=== PATIENT | female | born 1985 | race Hispanic/Latino ===

== ENCOUNTER 2022-01-29 14:12 | Inpatient (IN) | payer OTHER ==
[~2022-01-29] VITALS: Ht 154.9 cm; Wt 100.7 kg
[2022-02-12] MEDS ORDERED: LACTATED RINGERS 1000ML 1,000 ML IV PRN (15:00)
[2022-02-12 15:27] LABS: HEMATOCRIT 34.7 % (36-48); MEAN CORPUSCULAR HEMOGLOBIN 28.8 pg (27.0-33.0); MEAN CORPUSCULAR HGB CONC 33.1 g/dL (32.0-36.0); MEAN CORPUSCULAR VOLUME 86.8 fL (79-99); PLATELET COUNT (AUTO) 246 K/uL (130-400); RED CELL DISTRIBUTION WIDTH 18.7 % (11.0-15.5); WHITE BLOOD COUNT (AUTO) 10.2 K/uL (4.8-10.8)
[2022-02-12 15:30] LABS: APPEARANCE,URINE CLEAR (CLEAR); BILIRUBIN,URINE NEGATIVE (NEGATIVE); COLOR,URINE YELLOW (YELLOW); GLUCOSE, URINE (UA) NEGATIVE (NEGATIVE); KETONES,URINE NEGATIVE (NEGATIVE); LEUKOCYTE ESTERASE ,URINE NEGATIVE (NEGATIVE); NITRATE,URINE NEGATIVE (NEGATIVE); OCCULT BLOOD,URINE NEGATIVE (NEGATIVE); PH,URINE 7.5 (5.0-8.0); PROTEIN,URINE NEGATIVE (NEGATIVE); UROBILINOGEN,URINE 0.2 mg/dL (0.2-1.0)
[2022-02-12 15:38] LABS: CREATININE 0.4 mg/dL (0.5-1.5); POTASSIUM 3.9 mmol/L (3.5-5.1)
[2022-02-12 15:40] LABS: INR 0.93 (0.85-1.15); PROTHROMBIN TIME 9.8 SEC (9.6-11.6)
[2022-02-12 15:41] LABS: PARTIAL THROMBOPLASTIN TIME 24.8 SEC (26.3-35.5)
[2022-02-12 15:43] LABS: ALBUMIN 2.7 g/dL (3.5-5.0); BILIRUBIN,TOTAL 0.3 mg/dL (0.2-1.0); TOTAL PROTEIN, SERUM 6.9 g/dL (6.0-8.3); URIC ACID 3.5 mg/dL (2.6-7.2)
[2022-02-12] MEDS ORDERED: NALOXONE HCL 0.4 MG/1 ML ML IV PRN (16:30)
[2022-02-12] MEDS ORDERED: ROPIVACAINE 0.2% 100ML VIAL 100 ML EP SCH (16:30)
[2022-02-12] MEDS ORDERED: PROMETHAZINE HCL 25 MG/ML 1ML AMPULE IM PRN (16:30)
[2022-02-12] MEDS ORDERED: MEPERIDINE-PF 50 MG/ML SYG IVP PRN (16:30)
[2022-02-12] MEDS ORDERED: LACTATED RINGERS 500 ML 500 ML IV PRN (16:30)
[2022-02-12] MEDS ORDERED: EPHEDRINE SULFATE 50 MG/ML AMPULE IVP PRN (16:30)
[2022-02-12] MEDS: MISOPROSTOL 100 MCG TABLET VG SCH ×2 (17:30→22:30)
[2022-02-13] MEDS ORDERED: FENTANYL CITRATE PF 50 MCG/1 ML 2ML VIAL ONE ×2 (02:34→08:03)
[2022-02-13] MEDS ORDERED: OXYTOCIN-LR 20 UNITS/1000 ML 1,000 ML IV SCH ×2 (06:00→12:30)
[2022-02-13] MEDS ORDERED: BUTORPHANOL TARTRATE 2 MG/ML ONE (09:06)
[2022-02-13] MEDS ORDERED: ONDANSETRON 4MG INJ ONE (09:08)
[2022-02-13] MEDS ORDERED: BUTORPHANOL TARTRATE 2 MG/ML IVP SCH (09:15)
[2022-02-13] MEDS ORDERED: ONDANSETRON 4MG INJ IVP SCH (09:15)
[2022-02-13] MEDS ORDERED: METHYLERGONOVINE MALEATE 0.2 MG/1 ML ML ONE (10:41)
[2022-02-13] MEDS ORDERED: LANOLIN 30GM OINTMENT TP PRN (11:00)
[2022-02-13] MEDS ORDERED: WITCH HAZEL 1 PAD TP PRN (11:00)
[2022-02-13] MEDS ORDERED: BENZOCAINE/LANOLIN/ALOE VERA 60 ML AEROSOL TP PRN (11:00)
[2022-02-13] MEDS ORDERED: ACETAMINOPHEN 325 MG TAB PO PRN (11:00)
[2022-02-13] MEDS ORDERED: DIPH,PERTUSS(ACELL),TET VAC/PF 0.5 ML VIAL IM PRN (11:00)
[2022-02-13] MEDS: IBUPROFEN 600 MG TABLET PO PRN ×2 (12:06→21:34)
[2022-02-13 13:15] VITALS: BP 123/75
[2022-02-13 15:35] VITALS: BP 108/70
[2022-02-13] MEDS ORDERED: PREN1TAB63 PO (18:33)
[2022-02-13] MEDS ORDERED: FERR-72 PO (18:33)
[2022-02-13 19:10] VITALS: BP 102/60
[2022-02-13] MEDS: DOCUSATE SODIUM 100 MG CAP PO SCH (21:33)
[2022-02-13] MEDS: ACETAMINOPHEN WITH CODEINE 1 TAB TAB PO PRN (22:51)
[2022-02-13 23:30] VITALS: BP 101/65
[2022-02-14 03:50] VITALS: BP 101/51
[2022-02-14] MEDS: ACETAMINOPHEN WITH CODEINE 1 TAB TAB PO PRN (04:30)
[2022-02-14 07:12] VITALS: BP 99/50
[2022-02-14] MEDS: DOCUSATE SODIUM 100 MG CAP PO SCH (08:44)
[2022-02-14] MEDS: IBUPROFEN 600 MG TABLET PO PRN (08:45)
[2022-02-14 12:58] VITALS: BP 106/76
[2022-02-14] MEDS ORDERED: DOCU-116 PO (13:47)
[2022-02-14] MEDS ORDERED: IBUP-2077 PO (13:48)
[2022-02-14] MEDS ORDERED: ACET-2079 PO (13:48)
[2022-02-14 15:30] VITALS: BP 126/77
== END 2022-02-14 16:20 | disposition home or self-care (01) | DRG 807 ==
LOC: EDSTATUS 14:12 → LDH 02-12 14:15 → WSH 02-13 12:55
PROVIDERS: ADMIT Obstetrics & Gynecology; ATTEND Obstetrics & Gynecology
PROC: 10E0XZZ Delivery of Products of Conception, External Approach (ICD-10-PCS; principal; 2022-02-13)
PROC: 0KQM0ZZ Repair Perineum Muscle, Open Approach (ICD-10-PCS; 2022-02-13)
PROC: 3E0R3BZ Introduction of Anesthetic Agent into Spinal Canal, Percutaneous Approach (ICD-10-PCS; 2022-02-13)
PROC: 00HU33Z Insertion of Infusion Device into Spinal Canal, Percutaneous Approach (ICD-10-PCS; 2022-02-13)
PROC: 3E0P7GC Introduction of Other Therapeutic Substance into Female Reproductive, Via Natural or Artificial Opening (ICD-10-PCS; 2022-02-13)
DX: O62.2 Other uterine inertia (principal); Z37.0 Single live birth; O69.1XX0 Labor and delivery complicated by cord around neck, with compression, not applicable or unspecified; O70.1 Second degree perineal laceration during delivery; Z3A.40 40 weeks gestation of pregnancy; R03.0 Elevated blood-pressure reading, without diagnosis of hypertension; O36.63X0 Maternal care for excessive fetal growth, third trimester, not applicable or unspecified
CPT/HCPCS: 36415; 76805; 80053; 81003; 84550; 85027; 85384; 85610; 85730; 86592; 86850; 86900; 86901; 87340; A4314; G0378; J0595; J2175; J2210; J2405; J2550; J2590; J2795; J3010; J3490

== ENCOUNTER 2024-03-12 02:24 | Emergency (ER) | payer OTHER ==
[~2024-03-12] VITALS: Ht 154.9 cm; Wt 95.4 kg
[~2024-03-12 02:24] MED LIST: DOCU-116 PO; FERR-72 PO; IBUP-2077 PO; PREN1TAB63 PO
[2024-03-12] MEDS: 0.9%NACL 1000ML 1,000 ML IV ONE (03:01)
[2024-03-12] MEDS: MORPHINE 2 MG SYG IM ONE (03:01)
[2024-03-12] MEDS: ONDANSETRON 4MG INJ IVP ONE (03:01)
[2024-03-12] MEDS: ACETAMINOPHEN 500 MG TABLET PO ONE (03:02)
[2024-03-12 03:20] LABS: INR <= 0.93 (0.85-1.15); PROTHROMBIN TIME 10.7 SEC (9.6-11.6)
[2024-03-12 03:22] LABS: PARTIAL THROMBOPLASTIN TIME 27.6 SEC (26.3-35.5)
[2024-03-12 03:47] LABS: BASOPHILS # (AUTO) 0.05 K/uL (0.00-0.20); BASOPHILS % (AUTO) 0.3 % (0.0-5.0); EOSINOPHILS # (AUTO) 0.03 K/uL (0.00-0.70); EOSINOPHILS % (AUTO) 0.2 % (0.0-8.0); HEMATOCRIT 36.4 % (36-48); IMMATURE GRANULOCYTE ABSOLUTE 0.07 K/uL (0-1); LYMPHOCYTES # (AUTO) 2.2 K/uL (1.0-4.8); LYMPHOCYTES % (AUTO) 14.5 % (21.0-51.0); MEAN CORPUSCULAR HEMOGLOBIN 30.2 pg (27.0-33.0); MEAN CORPUSCULAR HGB CONC 34.6 g/dL (32.0-36.0); MEAN CORPUSCULAR VOLUME 87.3 fL (79-99); MONOCYTES # (AUTO) 0.7 K/uL (0.1-1.0); MONOCYTES % (AUTO) 4.8 % (3.0-13.0); NEUTROPHILS % (AUTO) 79.7 % (40.0-77.0); PLATELET COUNT (AUTO) 293 K/uL (130-400); RED BLOOD CELL COUNT(AUTO) 4.17 MIL/uL (4.00-5.50); RED CELL DISTRIBUTION WIDTH 12.8 % (11.0-15.5); WHITE BLOOD COUNT (AUTO) 15.1 K/uL (4.8-10.8)
[2024-03-12 03:57] LABS: APPEARANCE,URINE TURBID (CLEAR); BACTERIA,URINE RARE /HPF (None Seen); BILIRUBIN,URINE NEGATIVE (NEGATIVE); COLOR,URINE RED (YELLOW); GLUCOSE, URINE (UA) NEGATIVE (NEGATIVE); KETONES,URINE 5 mg/dL (NEGATIVE); LEUKOCYTE ESTERASE ,URINE 75 Leu/uL (NEGATIVE); MUCUS,URINE RARE LPF (None Seen); NITRATE,URINE NEGATIVE (NEGATIVE); OCCULT BLOOD,URINE LARGE (NEGATIVE); PROTEIN,URINE 50 mg/dL (NEGATIVE); RBC,URINE TNTC /HPF (0-1); SQUAMOUS EPITHELIAL CELL,UR FEW /HPF (0-2); UROBILINOGEN,URINE 0.2 mg/dL (0.2-1.0)
[2024-03-12 04:02] LABS: ALBUMIN 3.7 g/dL (3.5-5.0); BILIRUBIN,TOTAL 0.5 mg/dL (0.2-1.0); CREATININE 0.6 mg/dL (0.5-1.0); POTASSIUM 3.9 mmol/L (3.5-5.1); TOTAL PROTEIN, SERUM 7.1 g/dL (6.0-8.3)
[2024-03-12 05:23] VITALS: BP 116/78; PULSE 92; RESP 18; O2SAT 98
== END 2024-03-12 05:35 | disposition home or self-care (01) ==
LOC: EDH 02:24
DX: O03.9 Complete or unspecified spontaneous abortion without complication (principal); O26.891 Other specified pregnancy related conditions, first trimester; R10.2 Pelvic and perineal pain; Z3A.01 Less than 8 weeks gestation of pregnancy; Z79.899 Other long term (current) drug therapy
CPT/HCPCS: 99285; 96374; 76801; 96361; 80053; 84703; 84702; 85025; 85610; 85730; 87088; 81001 ×2; 36415; 96372; J2270; J7030; J2405